=== PATIENT | male | born 1940 | race Caucasian/White ===

== ENCOUNTER → 2019-10-10 16:33 | Outpatient (ROUT) | payer MEDICARE, OTHER, SELFPAY ==
[2019-10-10 17:02] LABS: Aspartate Aminotransferase 28 IU/L (17-59); BUN Creatinine Ratio 21.5 (6-22); Blood Urea Nitrogen 28 mg/dL (9-20); Carbon Dioxide 29 mmol/L (22-32); Chloride 103 mmol/L (98-107); Estimated Glomerular Filt Rate 53.1 mL/min (>60); Glucose 96 mg/dL (80-110); Potassium 4.5 mmol/L (3.4-5.1); Sodium 139 mmol/L (137-145)
[2019-10-10 17:03] LABS: Cholesterol 223 mg/dL (140-199); HDL Cholesterol 64 mg/dL (40-60); HEMOLYSIS < 15 (0-50); LDL Cholesterol Calculated 133 mg/dL (<100); Triglycerides 132 mg/dL (35-150)
[2019-10-10 17:31] LABS: Prostate Specific Antigen 0.065 ng/mL (0.10-4.00); TSH w/ Reflex to FT4 3.23 uIU/mL (0.47-4.68)
== END ==
PROVIDERS: Visit Provider Internal Medicine
DX: C61 Malignant neoplasm of prostate (principal); E78.2 Mixed hyperlipidemia; E03.9 Hypothyroidism, unspecified; I10 Essential (primary) hypertension
CPT/HCPCS: 80048; 80061; 84153; 84443; 84450

== ENCOUNTER 2020-01-01 10:57 | Day surgery (SDC) | payer MEDICARE, SELFPAY ==
--- NOTE | 2020-01-01 | PATH_ITS ---
[facility] Accession Number: [id number] . 01 Material submitted: . sigmoid colon - SIGMOID COLON POLYP . 02 Diagnosis: Sigmoid Colon, Polyp: Tubular adenoma. MRV 01/02/2020 1321 Local . 02 Electronically signed: . Holland Quiñones MD, PhD, Pathologist NPI- [id number] . 01 Gross description: . SIGMOID COLON POLYP: Received in formalin is 1 fragment(s) of brooks, soft tissue measuring 0.3 x 0.3 x 0.2 cm submitted entirely in 1 cassette(s) /[facility] [place] 01/01/2020 2158 Local . 02 Pathologist provided ICD-10: D12.5 . 02 CPT . 373699 Performed at: 01 [facility] [address] [place] [address], [place], [place] [id number] MD Felipe Escobar MD Phone: [phone] Performed at: 02 [facility] [address] [place], [place] [id number] MD Lashay Champagne MD Phone: [phone]
[2020-01-01 11:23] VITALS: BP 112/64; PULSE 67; RESP 15; TEMP 36.7; O2SAT 100; BMI 23.6
[2020-01-01] MEDS: SODIUM CHLORIDE 0.9% 1,000 ML 100 ML IV (11:55)
--- NOTE | 2020-01-01 13:01 | PM.HP.1 ---
History of Present Illness History of Present Illness Chief complaint: [id number] Patient History Medical History (Updated 01/01/20 @ 12:02 by Alyson Castillo RN) Prostate CA (Acute) Surgical History (Updated 01/01/20 @ 12:03 by Alyson Castillo RN) S/P colonoscopic polypectomy (Acute) Family & Social History Social History: household members spouse Tobacco & Substance use: Smoking Status Never smoker alcohol intake never Substance Use Type does not use Meds Home Medications and Allergies Home Medications Medication Instructions Recorded Confirmed Type hydrochlorothiazide 12.5 mg DAILY 01/01/20 01/01/20 History levothyroxine 50 mcg DAILY 01/01/20 01/01/20 History olmesartan 40 mg DAILY 01/01/20 01/01/20 History rosuvastatin 10 mg DAILY 01/01/20 01/01/20 History Allergies Allergy/AdvReac Type Severity Reaction Status Date / Time Latex, Natural Rubber AdvReac Mild Rash Verified 01/01/20 11:56 Exam Vital Signs (past 8 hours): - 01/01/20 11:23 Temperature 98.0 F Pulse Rate 67 Respiratory Rate 15 Blood Pressure 112/64 Pulse Oximetry 100 Oxygen Delivery Method Room Air Narrative Exam Narrative: Oropharynx through lesion Chest clear to auscultation and percussion Cardiac exam reveals no S3 or murmur Assessment & Plan Assessment & Plan narrative: History of colon polyps need for follow-up colonoscopy. Risks, benefits, alternatives have been explained.
--- NOTE | 2020-01-01 13:04 | PM.OP.ENDO ---
Operative Date/Time/Diagnoses Date of procedure: 01/01/20 Pre-op diagnosis: See indication and findings Procedure & Clinicians Study performed: Colonoscopy Same procedure as scheduled: Yes Indications: History of colon polyps Surgeon: Elio Fam Procedure Notes Procedure in detail: After informed consent was obtained the patient was placed in left lateral decubitus position. The video colonoscope was introduced to the rectum slowly advanced to the cecum. On slow withdrawal mucosa was carefully examined. The scope was removed. The patient tolerated procedure well. Blood loss none Complications none Sedation Total sedation time 18 minutes Versed 5 mg fentanyl 100 mg IV titration Findings 1. 6 mm polyp in the sigmoid colon cold snared and removed completely 2. Otherwise negative colonoscopy to cecum We will be in touch regarding the pathology. New guidelines would suggest that 1-2 small adenomas good having longer surveillance interval. Plus patient is 79 years of age we did discuss only perform a follow-up colonoscopy in 5 years if he is in excellent health.
[2020-01-01] MEDS: MIDAZOLAM 5 MG/5 ML VIAL IV (13:21)
[2020-01-01] MEDS: fentaNYL 250 MCG/5 ML INJ IV (13:22)
[2020-01-01 13:32] VITALS: BP 106/50; PULSE 50; RESP 15; TEMP 36.5; O2SAT 97
[2020-01-01 13:37] VITALS: BP 108/56; PULSE 69; RESP 18; TEMP 36.5; O2SAT 95
[2020-01-01 13:43] VITALS: BP 117/57; PULSE 67; RESP 21; TEMP 36.7; O2SAT 95
[2020-01-01 14:03] VITALS: BP 119/61; PULSE 90; RESP 15; TEMP 36.5; O2SAT 96
== END 2020-01-01 14:22 | disposition home or self-care (01) ==
PROVIDERS: PCP Internal Medicine; Referring Provider Internal Medicine Gastroenterology; Visit Provider Internal Medicine Gastroenterology
PROC: 0DJD8ZZ Inspection of Lower Intestinal Tract, Via Natural or Artificial Opening Endoscopic (ICD-10-PCS; CPT 45378; principal; 2020-01-01 13:00)
DX: Z12.11 Encounter for screening for malignant neoplasm of colon (principal); Z86.010 Personal history of colon polyps; D12.5 Benign neoplasm of sigmoid colon
CPT/HCPCS: 45385; J2250; J3010

== ENCOUNTER → 2020-01-15 14:51 | Outpatient (ROUT) | payer MEDICARE, SELFPAY ==
[2020-01-15 16:35] LABS: Aspartate Aminotransferase 25 IU/L (17-59); Cholesterol 137 mg/dL (140-199); HDL Cholesterol 56 mg/dL (40-60); LDL Cholesterol Calculated 62 mg/dL (<100); Triglycerides 96 mg/dL (35-150)
== END ==
PROVIDERS: PCP Internal Medicine; Visit Provider Internal Medicine
DX: E78.2 Mixed hyperlipidemia (principal)
CPT/HCPCS: 80061; 84450

== ENCOUNTER → 2020-12-23 18:39 | Outpatient (ROUT) | payer MEDICARE, SELFPAY ==
[2020-12-23 19:22] LABS: Aspartate Aminotransferase 21 IU/L (17-59); BUN Creatinine Ratio 21.4 (6-22); Blood Urea Nitrogen 33 mg/dL (9-20); Calcium 9.6 mg/dL (8.4-10.2); Carbon Dioxide 29 mmol/L (22-32); Chloride 103 mmol/L (98-107); Cholesterol 123 mg/dL (140-199); Estimated Glomerular Filt Rate 43.6 mL/min (>60); Glucose 149 mg/dL (80-110); HDL Cholesterol 67 mg/dL (40-60); HEMOLYSIS < 15 (0-50); LDL Cholesterol Calculated 21 mg/dL (<100); Potassium 4.3 mmol/L (3.4-5.1); Sodium 136 mmol/L (137-145); Triglycerides 177 mg/dL (35-150)
[2020-12-23 19:24] LABS: Hemoglobin A1C% w Est Avg Glu 5.9 % (4.0-6.0)
[2020-12-23 19:53] LABS: Prostate Specific Antigen < 0.064 ng/mL (0.10-4.00)
[2020-12-23 19:56] LABS: TSH w/ Reflex to FT4 1.05 uIU/mL (0.47-4.68)
== END ==
PROVIDERS: PCP Internal Medicine; Visit Provider Internal Medicine
DX: I10 Essential (primary) hypertension (principal); E78.2 Mixed hyperlipidemia; Z85.48 Personal history of malignant neoplasm of epididymis
CPT/HCPCS: 80048; 80061; 83036; 84153; 84443; 84450

== ENCOUNTER → 2021-01-07 15:08 | Outpatient (ROUT) | payer MEDICARE, SELFPAY ==
[2021-01-07 15:37] LABS: BUN Creatinine Ratio 19.5 (6-22); Blood Urea Nitrogen 29 mg/dL (9-20); Calcium 9.6 mg/dL (8.4-10.2); Carbon Dioxide 31 mmol/L (22-32); Chloride 105 mmol/L (98-107); Estimated Glomerular Filt Rate 45.3 mL/min (>60); Glucose 103 mg/dL (80-110); HEMOLYSIS < 15 (0-50); Potassium 4.9 mmol/L (3.4-5.1); Sodium 135 mmol/L (137-145)
== END ==
PROVIDERS: PCP Internal Medicine; Visit Provider Internal Medicine
DX: I10 Essential (primary) hypertension (principal)
CPT/HCPCS: 80048

== ENCOUNTER → 2021-02-11 16:08 | Outpatient (ROUT) | payer MEDICARE, SELFPAY ==
[2021-02-11 16:46] LABS: BUN Creatinine Ratio 20.6 (6-22); Blood Urea Nitrogen 29 mg/dL (9-20); Calcium 9.7 mg/dL (8.4-10.2); Carbon Dioxide 26 mmol/L (22-32); Chloride 104 mmol/L (98-107); Estimated Glomerular Filt Rate 48.2 mL/min (>60); Glucose 93 mg/dL (80-110); HEMOLYSIS < 15 (0-50); Potassium 4.6 mmol/L (3.4-5.1); Sodium 135 mmol/L (137-145)
== END ==
PROVIDERS: PCP Internal Medicine; Visit Provider Internal Medicine
DX: I10 Essential (primary) hypertension (principal)
CPT/HCPCS: 80048

== ENCOUNTER → 2022-11-24 12:02 | Outpatient (CLI) | payer MEDICARE, SELFPAY ==
[2022-11-24 13:15] LABS: Hemoglobin 12.8 g/dL (13.5-17.5); Mean Corpuscular HGB Conc 32.9 % (30-36); Mean Corpuscular Hemoglobin 31.8 PG (26-34); Mean Corpuscular Volume 96.7 fL (80-100); Platelet Count 174 X10^3/uL (150-400); Red Blood Cell Count 4.04 X10^6/uL (4.5-5.9); Red Cell Distribution Width 13.6 % (11.6-14.8); White Blood Cell Count 6.7 X10^3/uL (4.5-11.0)
[2022-11-24 13:30] LABS: Alanine Aminotransferase 19 IU/L (<50); Albumin 3.9 g/dL (3.5-5.0); Albumin Globulin Ratio 1.3 (1.0-2.8); Alkaline Phosphatase 72 U/L (38-126); Aspartate Aminotransferase 29 IU/L (17-59); BUN Creatinine Ratio 18.9 (6-22); Bilirubin Total 0.5 mg/dL (0.2-1.3); Blood Urea Nitrogen 25 mg/dL (9-20); Calcium 9.4 mg/dL (8.4-10.2); Carbon Dioxide 28 mmol/L (22-32); Chloride 101 mmol/L (98-107); Cholesterol 137 mg/dL (140-199); Estimated Glomerular Filt Rate 54 mL/min (>60); Globulin 2.9 g/dL (1.7-4.1); Glucose 94 mg/dL (80-110); HDL Cholesterol 73 mg/dL (40-60); HEMOLYSIS < 15 (0-50); LDL Cholesterol Calculated 45 mg/dL (<100); Potassium 5.3 mmol/L (3.4-5.1); Sodium 136 mmol/L (137-145); Total Protein 6.8 g/dL (6.3-8.2); Triglycerides 93 mg/dL (35-150)
[2022-11-24 13:59] LABS: Prostate Specific Antigen 0.106 ng/mL (0.10-4.00)
[2022-11-24 14:00] LABS: TSH w/ Reflex to FT4 2.72 uIU/mL (0.47-4.68)
[2022-11-25 13:26] LABS: Calcium 9.4 mg/dL (8.6-10.2); Parathyroid Hormone, Intact 51 pg/mL (15-65)
== END ==
PROVIDERS: PCP Internal Medicine; Referring Provider Internal Medicine; Visit Provider Internal Medicine
DX: E03.9 Hypothyroidism, unspecified (principal); Z85.46 Personal history of malignant neoplasm of prostate; E78.2 Mixed hyperlipidemia; I10 Essential (primary) hypertension; N18.32 Chronic kidney disease, stage 3b
CPT/HCPCS: 36415; 80053; 80061; 82310; 83970; 84153; 84443; 85027

== ENCOUNTER → 2023-12-05 11:05 | Outpatient (CLI) | payer MEDICARE, SELFPAY ==
[2023-12-05 12:00] LABS: Hematocrit 38.5 % (41-53); Hemoglobin 12.9 g/dL (13.5-17.5); Mean Corpuscular HGB Conc 33.6 % (30-36); Mean Corpuscular Hemoglobin 32.7 PG (26-34); Mean Corpuscular Volume 97.2 fL (80-100); Platelet Count 198 X10^3/uL (150-400); Red Blood Cell Count 3.96 X10^6/uL (4.5-5.9); Red Cell Distribution Width 13.6 % (11.6-14.8); White Blood Cell Count 7.5 X10^3/uL (4.5-11.0)
[2023-12-05 12:52] LABS: Aspartate Aminotransferase 26 IU/L (17-59); BUN Creatinine Ratio 16.2 (6-22); Blood Urea Nitrogen 25 mg/dL (9-20); Calcium 9.7 mg/dL (8.4-10.2); Carbon Dioxide 28 mmol/L (22-32); Chloride 103 mmol/L (98-107); Cholesterol 124 mg/dL (140-199); Estimated Glomerular Filt Rate 44 mL/min (>60); Glucose 95 mg/dL (80-110); HDL Cholesterol 58 mg/dL (40-60); HEMOLYSIS < 15 (0-50); LDL Cholesterol Calculated 45 mg/dL (<100); Potassium 4.9 mmol/L (3.4-5.1); Sodium 136 mmol/L (137-145); Triglycerides 105 mg/dL (35-150)
[2023-12-05 13:22] LABS: Prostate Specific Antigen 0.107 ng/mL (0.10-4.00)
[2023-12-05 13:23] LABS: TSH w/ Reflex to FT4 2.59 uIU/mL (0.47-4.68)
== END ==
PROVIDERS: PCP Internal Medicine; Referring Provider Internal Medicine; Visit Provider Internal Medicine
DX: Z85.46 Personal history of malignant neoplasm of prostate (principal); E03.9 Hypothyroidism, unspecified; E78.2 Mixed hyperlipidemia
CPT/HCPCS: 36415; 80048; 80061; 84153; 84443; 84450; 85027

== ENCOUNTER → 2024-12-12 10:14 | Outpatient (CLI) | payer MEDICARE, SELFPAY ==
[2024-12-12 10:39] LABS: Hematocrit 40.3 % (41-53); Hemoglobin 13.2 g/dL (13.5-17.5); Mean Corpuscular HGB Conc 32.7 % (30-36); Mean Corpuscular Hemoglobin 31.9 PG (26-34); Mean Corpuscular Volume 97.7 fL (80-100); Platelet Count 188 X10^3/uL (150-400); Red Blood Cell Count 4.12 X10^6/uL (4.5-5.9); Red Cell Distribution Width 14.1 % (11.6-14.8); White Blood Cell Count 7.2 X10^3/uL (4.5-11.0)
[2024-12-12 11:08] LABS: Alanine Aminotransferase 18 IU/L (<50); Albumin 3.8 g/dL (3.5-5.0); Albumin Globulin Ratio 1.7 (1.0-2.8); Alkaline Phosphatase 69 U/L (38-126); Aspartate Aminotransferase 27 IU/L (17-59); BUN Creatinine Ratio 20.6 (6-22); Bilirubin Total 0.6 mg/dL (0.2-1.3); Blood Urea Nitrogen 29 mg/dL (9-20); Calcium 9.4 mg/dL (8.4-10.2); Carbon Dioxide 26 mmol/L (22-32); Chloride 106 mmol/L (98-107); Cholesterol 149 mg/dL (140-199); Estimated Glomerular Filt Rate 49 mL/min (>60); Globulin 2.3 g/dL (1.7-4.1); Glucose 89 mg/dL (80-110); HDL Cholesterol 71 mg/dL (40-60); HEMOLYSIS < 15 (0-50); LDL Cholesterol Calculated 50 mg/dL (<100); Potassium 4.7 mmol/L (3.4-5.1); Sodium 136 mmol/L (137-145); Total Protein 6.1 g/dL (6.3-8.2); Triglycerides 141 mg/dL (35-150)
[2024-12-12 11:34] LABS: TSH w/ Reflex to FT4 2.65 uIU/mL (0.47-4.68)
[2024-12-12 11:38] LABS: Prostate Specific Antigen 0.091 ng/mL (0.10-4.00)
== END ==
LOC: LAB 10:16
PROVIDERS: PCP Internal Medicine; Referring Provider Internal Medicine; Visit Provider Internal Medicine
DX: E03.9 Hypothyroidism, unspecified (principal); Z85.46 Personal history of malignant neoplasm of prostate; N18.32 Chronic kidney disease, stage 3b
CPT/HCPCS: 36415; 80053; 80061; 84153; 84443; 85027

== ENCOUNTER → 2024-12-17 09:58 | Outpatient (CLI) | payer MEDICARE, SELFPAY ==
[2024-12-18 13:09] LABS: Fecal Immunochemical Test Negative (Negative)
== END ==
PROVIDERS: PCP Internal Medicine; Referring Provider Internal Medicine; Visit Provider Internal Medicine
DX: Z12.11 Encounter for screening for malignant neoplasm of colon (principal)
CPT/HCPCS: 82274